=== PATIENT | female | born 1995 | race Caucasian/White ===

== ENCOUNTER 2023-01-25 03:30 | Inpatient (IN) | payer BC, MEDICAID, SELFPAY ==
[2023-01-25] VITALS (24 sets, daily range): BP systolic 118–171; BP diastolic 66–102; PULSE 77–121; RESP 16–18; TEMP 36.3–37.5; O2SAT 97–98; BMI 32.2
--- NOTE | 2023-01-25 03:44 | PC.NURSE ---
Toni Sutton MEDIA MONITOR contacted about pt arriving, being a previous section but attempting to , and being 7 cm dilated. He stated he would head in.
[2023-01-25] MEDS: lactated ringers 1,000 ML 999 ML IV (03:45)
[2023-01-25] MEDS: ampicillin 2,000 MG in sodium chloride 0.9% (plus) 50 ML 100 MG IV (03:52)
[2023-01-25 04:26] LABS: Basophils % 0.2 %; Eosinophils # 0.1 10^3/uL (0.0-0.8); Eosinophils % 0.3 %; Hematocrit 31.8 % (37.0-47.0); Hemoglobin 9.4 g/dL (11.5-15.3); Lymphocytes # 2.3 10^3/uL (0.8-4.8); Lymphocytes % 12.6 %; Mean Corpuscular HGB Conc 29.6 g/dL (30.0-36.0); Mean Corpuscular Hemoglobin 22.4 pg (28.0-34.0); Mean Corpuscular Volume 75.9 fl (81-99); Mean Platelet Volume 9.9 fL (7.4-10.4); Monocytes # 1.1 10^3/uL (0.2-0.9); Monocytes % 5.7 %; Neutrophils # 14.77 10^3/uL (1.8-7.7); Neutrophils % 80.5 %; Nucleated Red Blood Cells % 0.1 %; Platelet Count 300 10^3/cmm (130-400); Red Blood Count 4.19 10^6/uL (4.1-5.3); Red Cell Distribution Width 16.8 % (12.1-15.1); White Blood Count 18.3 10^3/uL (4.0-10.0)
[2023-01-25] MEDS: ondansetron 2 mg/ML SDV 2 mL 4 MG IVP (04:28)
--- NOTE | 2023-01-25 04:35 | PC.NURSE ---
Toni Sutton [employer]PERVISOR in room now to perform intrathecal per Dr. Blount request for pain control. Patient verbalized consent and signed consent. She was helped into position by the other nurses. Patient tolerated procedure well.
--- NOTE | 2023-01-25 04:47 | ANES.PREANE2 ---
Pre-Anesthetic Assessment Height/Weight: Temp Pulse BP 98.0 F 111 H 137/66 01/25/23 03:59 01/25/23 04:15 01/25/23 04:15 Preop Diagnosis: , labor pain Intrathecal injection Was Beta Libertad taken within 24 hours: N/A Was Clonidine taken within 24 hours: N/A Social Tobacco THC Exam alert, oriented x 3, clear to auscultation bilaterally and regular rate & rhythm Airway Submandibular: within normal limits Cervical ROM: within normal limits Mallampati: Class II Dentition: full History/ROS No significant history except as noted and No significant complaints Pulmonary Asthma CV/HEM None reported None reported Hepatic None reported GI None reported Metabolic None reported Musc/skel None reported Neuropsych None reported Anesthetic Plan ASA status: 2 Anesthesia: Anesthesia Evaluation and Regional (specify below) (Intrathecal injection) Medications/Allergies Current Medications Generic Name Dose Route Start Last Admin Trade Name Freq PRN Reason Stop Dose Admin Lactated Ringer's 1,000 mls @ 999 mls/hr 01/25/23 03:33 01/25/23 03:45 Lactated Ringers IV 999 mls/hr .Q1H1M PRN Administration BLEEDING Ondansetron HCl 4 mg 01/25/23 03:33 01/25/23 04:28 Ondansetron 2 Mg/Ml Sdv 2 Ml IVP 4 mg Q4H PRN Administration NAUSEA AND VOMITING Data Anesthesia 01/25/23 03:45 Short CBC 01/25/23 Range/Units 03:45 WBC 18.3 H (4.0-10.0) 10^3/uL Hgb 9.4 L (11.5-15.3) g/dL Hct 31.8 L (37.0-47.0) % MCV 75.9 L (81-99) fl Plt Count 300 (130-400) 10^3/cmm Neut % (Auto) 80.5 % Neut # (Auto) 14.77 H (1.8-7.7) 10^3/uL Cardiac Studies: No Data to Display
[2023-01-25] MEDS: oxytocin 30 UNIT/500 ML BAG 600 UNIT IV (04:48)
--- NOTE | 2023-01-25 04:59 | P.ANES_ITS ---
Anesthesia Procedures Procedure/Date: 01/25/23 Lumbar Puncture: Time Out Performed: Yes Consent: requested by attending/covering physician, from patient, risks and benefits reviewed and patient agrees to proceed Patient Position: upright Skin Prep: Povidone- Iodine 1% Local anesthetic used: Lidocaine 1% Amount of anesthesia used (mL): 0.5 Spinal Needle Gauge: Other (of spinal bupiv and 25 mcg for intrathecal injection) Interspace Used: L3-L4 Other Information: Pt [address] Blount asking for intrathecal injection to assist with labor.
--- NOTE | 2023-01-25 05:00 | P.HP_ITS ---
Providers/Chief Complaint Admitting Physician: Grace Blount MD Chief Complaint: CONTRACTIONS History of Present Illness Anni Boswell is a 27 year old female, who presents to labor and delivery in active labor. Her is complicated by limited to no care. She reports that she had care in [place], but moved here 3 months ago and has not had any care. She does report that she is 38 weeks gestation. Her is complicated by one previous for breech and rh negative blood type. Otherwise, her pregnancies have been uncomplicated. Review of Systems General: Reports: 10 or more systems reviewed and unremarkable except in HPI and below Vitals/I&O/Wt Last Vital Signs Temp 98.0 F 01/25/23 03:59 Pulse 115 H 01/25/23 04:45 BP 133/74 01/25/23 04:45 Physical Exam Const: COMMON NORMALS: no acute distress, average body habitus, patient oriented x3, no limitations, healthy appearing, alert and well nourished GENERAL APPEARANCE: cooperative, comfortable, well kempt and well developed ORIENTATION/CONSCIOUSNESS: Yes awake, Yes oriented to person, Yes oriented to place and Yes oriented to time Resp: COMMON NORMALS: normal respiratory effort EFFORT & INSPECTION: Yes able to speak in complete sentences GI: COMMON NORMALS: Soft to palpation and non-tender : MANUAL OB EXAM: dilated 7 cm, effaced fully and station 0 AMNIOTIC FLUID: Meconium-stained amniotic fluid present OTHER: gravid, non-tender uterus, AROM with Thick meconium Extremity: COMMON NORMALS: no calf tenderness Data 01/25/23 03:45 A&P Assessment and plan (1) Supervision of other high risk , antepartum: admit for labor manage labor pain AROM thick meconium peds to be at delivery, if possible anticipate (2) Rh negative state in antepartum period: (3) Previous delivery affecting : Attestations Medical Necessity Statement*: The patient will likely have a vaginal delivery. With limited care and thick meconium, I anticipate the baby needing to be in the nursery for 48 hours, so the mother will likely be here two midnights. Coding Level of Care Code Acute Code for Chg Fwd Diagnoses Supervision of other high risk , antepartum O09.899 Rh negative state in antepartum period O26.899; Z67.91 Previous delivery affecting O34.219
--- NOTE | 2023-01-25 05:08 | PM.DELIVERY ---
Delivery Note: Date of delivery: January 25, 2023 Pre-delivery diagnoses: iup@ 38 weeks, limited care, Rh negative, previous Post-delivery diagnoses: same-delivered Procedure: Delivering Physician: ammy jackson Estimated blood loss (mL): 100 Findings: Term female in the IWONA presentation with thick meconium Pre-Delivery Course: The patient was admitted in active labor at 7 cm. AROM was performed with thick meconium. The patient received an intrathecal anesthesia for pain management. She had complete cervical dilation and began pushing. Delivery: The patient had complete cervical dilation and began to push. The head delivered in the IWONA position over an intact perineum under intrathecal anesthesia. The nose and mouth were bulb suctioned. The shoulders and body delivered atraumatically. The baby was placed onto the mother's abdomen. The cord was clamped and cut. Baby was taken to the warmer for evaluation by the technical assoc. Cord blood was obtained. The placenta delivered spontaneously. It was inspected and found to be intact. Inspection of the perineum revealed no lacerations and no repair was required. Estimated blood loss 100 mL. The patient continued to have a trickle of blood. She was given 800 of Cytotec orally and 1 dose of Methergine as well as Pitocin wide open. The uterus was evacuated of some clots and the bleeding slowed down. Apgars on baby were 6 at 1 minute and 8 at 5 minutes. Weight of baby is 9 pounds 6 ounces. Mother and baby were stable post delivery. Coding Level of Care Code Acute Code for Chg Fwd
[2023-01-25 05:09] LABS: Hepatitis B Surface Antigen Non-Reactive (Nonreactive)
[2023-01-25] MEDS: methylergonovine 0.2 mg/mL INJ 1 mL IM (05:09)
[2023-01-25] MEDS: miSOPROStol 200 mcg Tablet 800 MCG PR (05:10)
[2023-01-25 05:12] LABS: Rapid Plasma Reagin Syphilis Nonreactive (Nonreactive)
[2023-01-25 05:31] LABS: Rubella IgG 77.3 IU/mL (0.0-10.0)
[2023-01-25 05:44] LABS: HIV 1 & 2 Antibody Non-Reactive (Non-Reactiv); HIV 1 & 2 Antigen Non-Reactive (Non-Reactiv)
[2023-01-25 05:46] LABS: Amphetamines Screen Urine Positive (Negative); Barbiturates Screen Urine Negative (Negative); Benzodiazepines Screen Urine Negative (Negative); Cocaine Screen Urine Negative (Negative); Opiate Screen Urine Negative (Negative); PCP Screen Urine Negative (Negative); THC Screen Urine Positive (Negative)
[2023-01-25] MEDS: docusate sodium 100 mg Capsule PO ×2 (09:14→21:19)
[2023-01-25] MEDS: ibuprofen 800 mg tablet PO ×3 (09:14→21:20)
[2023-01-25] MEDS: prenatal vitamin Capsule 1 CAP PO (09:14)
[2023-01-25 18:02] LABS: Hematocrit 29.7 % (37.0-47.0); Hemoglobin 8.7 g/dL (11.5-15.3); Mean Corpuscular HGB Conc 29.3 g/dL (30.0-36.0); Mean Corpuscular Hemoglobin 23.3 pg (28.0-34.0); Mean Corpuscular Volume 79.6 fl (81-99); Mean Platelet Volume 10.8 fL (7.4-10.4); Platelet Count 273 10^3/cmm (130-400); Red Blood Count 3.73 10^6/uL (4.1-5.3); Red Cell Distribution Width 16.9 % (12.1-15.1); White Blood Count 18.8 10^3/uL (4.0-10.0)
[2023-01-26 05:27] VITALS: BP 105/65; PULSE 62; RESP 16; TEMP 36.5; O2SAT 98
[2023-01-26] MEDS: docusate sodium 100 mg Capsule PO (08:49)
[2023-01-26] MEDS: prenatal vitamin Capsule 1 CAP PO (08:49)
[2023-01-26] MEDS: ibuprofen 800 mg tablet PO ×2 (08:49→15:22)
[2023-01-26 08:50] VITALS: BP 118/58; PULSE 80; RESP 15; TEMP 36.4; O2SAT 97
--- NOTE | 2023-01-26 11:20 | P.DS_ITS ---
Discharge Providers Date of Admission: 01/25/23 03:30 Date of Discharge: January 26, 2023 Attending Provider at Admission: Grace Blount MD Attending Provider at Discharge: Grace Blount MD Diagnoses at Discharge Discharge Diagnosis (1) Supervision of other high risk , antepartum: Status: Acute (2) Rh negative state in antepartum period: Status: Acute (3) Previous delivery affecting : Status: Acute Reason for Visit Reason for Visit: CONTRACTIONS Hospital Course Hospital Course The patient was admitted for active labor and no care.. She had spontaneous delivery of a term female . DFS has become involved. 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 The patient did well and was asking for discharge on day #1. Physical Exam Narrative: The patient is doing well today. She is tolerating a regular diet, ambulating without difficulty and pain is well controlled. Const: COMMON NORMALS: no acute distress, average body habitus, patient oriented x3, no limitations, healthy appearing, alert and well nourished GENERAL APPEARANCE: cooperative, comfortable, well kempt and well developed ORIENTATION/CONSCIOUSNESS: Yes awake, Yes oriented to person, Yes oriented to place and Yes oriented to time Resp: COMMON NORMALS: normal respiratory effort EFFORT & INSPECTION: Yes able to speak in complete sentences GI: COMMON NORMALS: Soft to palpation and non-tender PALPATION: Yes Soft to palpation Extremity: COMMON NORMALS: no calf tenderness Neuro: COMMON NORMALS: patient oriented x3 SENSORIUM/ORIENTATION: Yes alert, Yes oriented to person, Yes oriented to place and Yes oriented to time Psych: COMMON NORMALS: mental status grossly normal, Normal thought process present, cooperative, normal affect and speech normal APPEARANCE: Yes well kempt SPEECH: Yes normal speech THOUGHT PROCESS: Normal thought process present Discharge Data Studies Completed and Pending Pending at discharge Category Date Time Status Pathology: Surgical [PTH] Routine Pth 01/25/23 05:21 Received Laboratory Results WBC 18.8 10^3/uL (4.0-10.0) H 01/25/23 17:54 RBC 3.73 10^6/uL (4.1-5.3) L 01/25/23 17:54 Hgb 8.7 g/dL (11.5-15.3) L 01/25/23 17:54 Hct 29.7 % (37.0-47.0) L 01/25/23 17:54 MCV 79.6 fl (81-99) L 01/25/23 17:54 MCH 23.3 pg (28.0-34.0) L 01/25/23 17:54 MCHC 29.3 g/dL (30.0-36.0) L 01/25/23 17:54 RDW 16.9 % (12.1-15.1) H 01/25/23 17:54 Plt Count 273 10^3/cmm (130-400) 01/25/23 17:54 MPV 10.8 fL (7.4-10.4) H 01/25/23 17:54 Neut % (Auto) 80.5 % 01/25/23 03:45 Lymph % (Auto) 12.6 % 01/25/23 03:45 [place] % (Auto) 5.7 % 01/25/23 03:45 Eos % (Auto) 0.3 % 01/25/23 03:45 Baso % (Auto) 0.2 % 01/25/23 03:45 Neut # (Auto) 14.77 10^3/uL (1.8-7.7) H 01/25/23 03:45 Lymph # (Auto) 2.3 10^3/uL (0.8-4.8) 01/25/23 03:45 [place] # (Auto) 1.1 10^3/uL (0.2-0.9) H 01/25/23 03:45 Eos # (Auto) 0.1 10^3/uL (0.0-0.8) 01/25/23 03:45 Baso # (Auto) 0.0 10^3/uL (0.0-0.1) 01/25/23 03:45 Nucleated RBC % (auto) 0.1 % 01/25/23 03:45 Nucleated RBCs # 0.0 /100WBC 01/25/23 03:45 Urine Opiates Screen Negative ng/mL (Negative) 01/25/23 04:41 Ur Barbiturates Screen Negative ng/mL (Negative) 01/25/23 04:41 Ur Phencyclidine Scrn Negative ng/mL (Negative) 01/25/23 04:41 Ur Amphetamines Screen Positive ng/mL (Negative) H 01/25/23 04:41 U Benzodiazepines Scrn Negative ng/mL (Negative) 01/25/23 04:41 Urine Cocaine Screen Negative ng/mL (Negative) 01/25/23 04:41 U Marijuana (THC) Screen Positive ng/mL (Negative) H 01/25/23 04:41 RPR Nonreactive (Nonreactive) 01/25/23 04:00 Hep Bs Antigen Non-reactive (Nonreactive) 01/25/23 04:00 HIV 1&2 Ab & HIV 1 Ag Non-reactive (Non-Reactiv) 01/25/23 04:00 HIV 1&2 Antibody Non-reactive (Non-Reactiv) 01/25/23 04:00 Rubella IgG Antibody 77.3 IU/mL (0.0-10.0) H 01/25/23 04:00 Blood Type O Negative 01/25/23 03:45 Rho(D) Type Negative 01/25/23 03:45 Antibody Screen Negative 01/25/23 03:45 Vitals Last Vital Signs Temp 97.6 F 01/26/23 08:50 Pulse 80 01/26/23 08:50 Resp 15 01/26/23 08:50 BP 118/58 01/26/23 08:50 Pulse Ox 97 01/26/23 08:50 O2 Del Method 01/26/23 08:50 Discharge Plan Discharge Patient Disposition: Home Condition: Stable Prescriptions: Continued No Known Home Medications Discharge Orders: Discharge Order (Routine); Ordered 01/26/23 Ordered By: Grace Blount Patient Instructions: Opioid Safety Discharge Attestations Time Spent in Discharge Care*: less than 30 min Quality Metrics Clinical Quality Measures [ No reported AMI, CVA or VTE this stay] Coding Level of Care Code Acute Code for Chg Fwd Diagnoses Supervision of other high risk , antepartum O09.899 Rh negative state in antepartum period O26.899; Z67.91 Previous delivery affecting O34.219
[2023-01-26 15:26] VITALS: BP 134/70; PULSE 82; RESP 15; O2SAT 99
[2023-01-26 15:35] VITALS: BP 134/70; PULSE 82; RESP 15; O2SAT 99
== END 2023-01-26 15:35 | disposition home or self-care (01) | DRG 807 ==
LOC: OPOB 03:33 → OBGYN 03:33
PROVIDERS: Family Medicine; Admitting Provider Obstetrics & Gynecology; Visit Provider Obstetrics & Gynecology
DX: O99.324 Drug use complicating childbirth (principal); Z37.0 Single live birth; F15.90 Other stimulant use, unspecified, uncomplicated; O77.0 Labor and delivery complicated by meconium in amniotic fluid; Z3A.00 Weeks of gestation of pregnancy not specified; O34.219 Maternal care for unspecified type scar from previous cesarean delivery; N85.8 Other specified noninflammatory disorders of uterus
CPT/HCPCS: 36415; 59025; 59409; 80306; 85025; 85027; 86592; 86762; 86850; 86900; 87340; 87491; 87591; 87806; 88307; 96372; 96374; 99211; J0290; J2210; J2405; J2590; J3010; J7120

== ENCOUNTER → 2024-03-06 14:28 | Outpatient (BNVA) | payer BC, MEDICAID, SELFPAY | PROVIDERS: Visit Provider Nurse Practitioner Family | DX: M79.641 Pain in right hand (principal) | CPT/HCPCS: 73130 ==